=== PATIENT | male | born 1995 | race Two or more races ===

== ENCOUNTER 2025-03-09 22:33 | Emergency (ER) | payer OTHER ==
[~2025-03-09] VITALS: Ht 172.7 cm; Wt 99.8 kg
[2025-03-09 22:36] VITALS: BP 134/80; TEMP 98.5
[2025-03-09] MEDS ORDERED: CIPROFLOXACIN HCL 500 MG TABLET ONE (22:42)
[2025-03-09] MEDS: CIPROFLOXACIN HCL 250 MG TABLET PO ONE (22:54)
[2025-03-10] MEDS ORDERED: AZITHROMYCIN 250 MG TABLET ONE (00:04)
[2025-03-10] MEDS ORDERED: AZITHROMYCIN 250 MG TABLET PO ONE (00:30)
[2025-03-10 01:00] VITALS: O2SAT 98
== END 2025-03-10 02:37 | disposition home or self-care (01) ==
LOC: ER 22:36
DX: Z13.89 Encounter for screening for other disorder (principal); Z60.2 Problems related to living alone